=== PATIENT | male | born 1935 | race Caucasian/White ===

== ENCOUNTER → 2016-11-03 | Outpatient (CLI) | payer MEDICARE, OTHER ==
--- NOTE | 2016-11-03 11:47 | US ---
EXAM DESCRIPTION: Soft Tissue, Abdomen CLINICAL HISTORY: LEFT LOWER QUADRANT ABDOMINAL PAIN COMPARISON: None Available. TECHNIQUE: Transcutaneous scanning: Two-dimensional and Doppler modes. FINDINGS: Hypoechoic complex solid lesion with central echogenicity and no peristalsis. Ill-defined hunter, measuring 1.72 x 1.68 x 4.5 cm. Posterior attenuation. No significant vascularity on Doppler. IMPRESSION: Ill-defined solid lesion versus abnormal/normal non bowel tissue in the left lower quadrant of the abdomen in the region of pain. Nonvascular. Consider CT scan of the abdomen and pelvis with IV contrast and delayed images. CRITICAL COMMUNICATION: The critical value was discussed directly by phone with DEWEY RizoP at approximately 1140 hours, on November 03, 2016. Electronically signed by: Franko Issa MD 11/03/2016 11:45 AM CDT Workstation: [id number]
--- NOTE | 2016-11-03 14:35 | CT ---
EXAM DESCRIPTION: CT: Abdomen/Pelvis w/Contrast CLINICAL HISTORY: UNSPECIFIED ABDOMINAL PAIN COMPARISON: Left lower quadrant abdominal ultrasound today. TECHNIQUE: Spiral-axial scans at 5 mm intervals through the abdomen and pelvis after water-soluble oral contrast and nonionic IV contrast. Coronal and sagittal 2.0 mm reconstructions. 5- minute delayed axial scans, from liver through the pelvis. No adverse reactions. . Total Exam DLP: 1594.3 mGy-cm. This exam was performed according to our departmental dose-optimization program which includes automated exposure control, adjustment of the mA and/or kV according to patient size and/or use of iterative reconstruction technique; to reduce radiation dose to as low as reasonably achievable (ALARA). FINDINGS: Colon: Multiple diverticula in the descending colon and sigmoid with a few diverticula at the splenic flexure. At the junction of the descending colon and sigmoid colon, the wall is thickened and there is also thickening of the diverticula. Also noted is fascial thickening and pericolic fatty stranding. No fluid collections. No free intraperitoneal air. No obstruction of the colon. Terminal Ileum/Cecum: Contains oral contrast and normal caliber. Normal caliber of the appendix containing oral contrast. Normal density of the surrounding fat with no free fluid. Small Bowel: Contains oral contrast with minimal gas no distention or significant air-fluid levels. Lung bases and pleura: Unremarkable. Liver, Stomach, Spleen, and adrenal glands: Negative. Pancreas, Gallbladder, Ducts: Surgical clips in the gallbladder fossa but no fluid. Common bile duct is not dilated. Normal size density and enhancement of the pancreas. Kidneys and Ureters: Bilateral parapelvic cysts. No radiodense stones, hydronephrosis, hydroureter. Atherosclerotic calcification of the bilateral renal artery ostia at the aorta. Mesentery: Fatty stranding and fascial thickening around the junction of the descending colon and sigmoid colon as previously described. No free air or free fluid. No significant adenopathy. Aorta: Atherosclerotic calcification of the ostia of the celiac axis and SMA. Moderate distal atherosclerotic calcification extending into the right common iliac artery. No para-aortic mass. Spine and Bony Pelvis: Spondylosis included thoracic and upper lumbar spine. Posterior bulging discs at L4-5 and L5-S1 (grade 1 anterolisthesis) with possible herniation posterior L4-5 disc and calcification significant foraminal narrowing. Lumbar facet degeneration. Pelvic Organs: Markedly enlarged and heterogeneously enhancing prostate gland impressing on the base of the urinary bladder measuring 5.7 x 5.6 x 4.8 cm, partially calcified. Thickened hunter of the urinary bladder, minimal contrast. Abdominal Wall/Back Soft Tissues: bilateral fatty inguinal hernias larger on the right not containing bowel. IMPRESSION: 1. Diverticulitis at the junction of the descending colon and sigmoid colon with no evidence of complications including free air and free fluid. Diverticulosis. 2. Spondylosis thoracic and lumbar spine. Bulging and possibly herniated discs at L4-5 and L5-S1 with facet degeneration. 3. Markedly enlarged prostate gland impressing on the base of the urinary bladder. No free fluid. 4. Bilateral parapelvic cysts in the kidneys but no significant abnormalities. 5. Atherosclerotic calcifications of the origins of the celiac axis, SMA, and bilateral renal arteries. Correlate with clinical findings; these findings could contribute to organ ischemia in the abdomen. CRITICAL COMMUNICATION: The critical value was discussed directly by phone with MARIYA Rizo at approximately 1425 hours, on November 03, 2016. Electronically signed by: Franko Issa MD 11/03/2016 2:33 PM CDT Workstation: [id number]
== END ==
LOC: US 10:53
PROVIDERS: ATTEND Nurse Practitioner Family
DX: R22.2 Localized swelling, mass and lump, trunk (principal); R10.32 Left lower quadrant pain; K57.32 Diverticulitis of large intestine without perforation or abscess without bleeding; N40.0 Benign prostatic hyperplasia without lower urinary tract symptoms; I70.1 Atherosclerosis of renal artery; K46.9 Unspecified abdominal hernia without obstruction or gangrene

== ENCOUNTER → 2016-12-17 | Outpatient (CLI) | payer MEDICARE, OTHER ==
--- NOTE | 2016-12-17 12:33 | RAD ---
EXAM DESCRIPTION: Chest,2 Views CLINICAL HISTORY: FALL COMPARISON: None available FINDINGS: The cardiomediastinal silhouette is unremarkable. There is no pulmonary contusion or pleural fluid collection. There is a slightly displaced right seventh rib fracture. No segmental rib fracture, pneumothorax or other acute abnormality. IMPRESSION: Slightly displaced right seventh rib fracture without segmental rib fracture, pneumothorax, hemothorax or other acute intrathoracic abnormality. Electronically signed by: Josh Ochoa MD 12/17/2016 12:32 PM CDT Workstation: [id number]
--- NOTE | 2016-12-17 12:34 | RAD ---
EXAM DESCRIPTION: Scapula,Right CLINICAL HISTORY: 81 years Male, SHOULDER PAIN COMPARISON: None. FINDINGS: 2 views of the right scapula show degenerative changes in the right glenohumeral joint. No displaced scapular fracture is identified. There is a minimally displaced right seventh rib fracture. No additional rib fracture is seen. IMPRESSION: Minimally displaced right seventh rib fracture, but no additional acute pneumonia. Moderately advanced degenerative changes in the right glenohumeral joint. Electronically signed by: Josh Ochoa MD 12/17/2016 12:33 PM CDT Workstation: [id number]
== END | disposition home or self-care (01) ==
LOC: GMA 11:45
PROVIDERS: ATTEND Nurse Practitioner Family
DX: M89.8X1 Other specified disorders of bone, shoulder (principal); M19.011 Primary osteoarthritis, right shoulder; M84.48XA Pathological fracture, other site, initial encounter for fracture

== ENCOUNTER → 2017-12-20 | Outpatient (CLI) | payer OTHER ==
--- NOTE | 2017-12-20 11:05 | CT ---
EXAM DESCRIPTION: Lumbar Spine: Computed Tomography. CLINICAL HISTORY: ACUTE LOW BACK PAIN. Acute flank pain. COMPARISON: Lumbar spine MRI without contrast 04/15/2009. TECHNIQUE: Spiral, axial 2.5 x 5.0 mm scans through the lumbarspine without contrast. Coronal and sagittal 3.0 mm Reconstructions. Total Exam DLP: 1222.6 mGy-cm. This exam was performed according to our departmental dose-optimization program which includes automated exposure control, adjustment of the mA and/or kV according to patient size and/or use of iterative reconstruction technique; to reduce radiation dose to as low as reasonably achievable (ALARA). FINDINGS: L5-S1: Mild disc space loss posteriorly with bulging abutting the thecal sac. Grade 1 anterolisthesis. Near stenosis of the bilateral foramina more on the left. Moderate facet arthrosis and minimal flavum ligament hypertrophy. Spondylolysis right pars interarticularis. L4-5: Minimal degenerative signal in the disc. Posterior midline moderate disc osteophyte bulge with flavum ligament hypertrophy and facet arthrosis and mild to moderate canal stenosis. Bilateral mild foraminal stenosis. L3-4: Disc space maintained minimal anterior posterior bulging with anterior endplate spurs. Mild canal narrowing and bilateral moderate foraminal narrowing. Minimal flavum ligament hypertrophy and mild facet arthrosis. L2-3: Disc space maintained with minimal posterior bulging. Anterior marginal spurs. Mild canal narrowing. Bilateral foramina are patent. Posterior elements unremarkable. L1-2: Anterior disc bulging and endplate ridging. Minimal posterior bulge with calcification in the posterior disc. Minimal flavum ligament hypertrophy and mild facet arthrosis with mild canal narrowing. Bilateral foramina are patent. No scoliosis. No compression type vertebral body fractures. IMPRESSION: 1. Posterior midline L4-5 disc osteophyte bulge impressing on the thecal sac with mild to moderate canal stenosis. Bilateral bony and disc encroaching on the foramen with mild stenosis. 2. 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 Moderate facet arthrosis. Borderline stenosis of the bilateral foramina more on the left. Mild to moderate canal narrowing. 3. Anterior and posterior disc bulge L3-4 bilateral moderate foraminal narrowing with facet arthrosis and flavum ligament hypertrophy. Electronically signed by: Franko Issa MD 12/20/2017 11:03 AM CDT
--- NOTE | 2017-12-20 11:37 | CT ---
EXAM DESCRIPTION: Abdomen/Pelvis w/o Contrast: Computed Tomography. CLINICAL HISTORY: ACUTE FLANK PN COMPARISON: CT scan lumbar spine without contrast on the same visit. TECHNIQUE: Spiral-axial scans at 5.0 x 5.0 mm intervals through the abdomen and pelvis. Coronal and sagittal 2.0mm reconstructions. No IV or oral contrast. Total Exam DLP: 1222.26 mGy-cm. This exam was performed according to our departmental CT dose-optimization program which includes automated exposure control, adjustment of the mA and/or kV according to patient size and/or use of iterative reconstruction technique; to reduce radiation dose to as low as reasonably achievable (ALARA). FINDINGS: Kidneys and Ureters: Trace hydronephrosis bilaterally. Bilateral parapelvic cysts and bilateral prominent renal pelves. No radiodense stones. Pararenal fatty stranding bilaterally is symmetric and more likely to represent aging than renal obstruction. Symmetric renal size bilaterally. Bilateral ureters are not dilated with no periureteral edema. However mass effect on the base of the urinary bladder and ureterovesical junctions from the enlarged prostate gland. Pelvic Organs: Prostate is heterogeneous in density with central anterior superior low-density. Central inferior calcification. Largest transverse dimension is 5.7 x 4.7 cm in craniocaudal dimension approximately 6 cm. Lobulated anterior superior surface of the prostate gland, also somewhat irregular surface, impressing on the base of the bladder. Minimal distention of the bladder with wall thickening and no radiodense stones. Mass effect also on the seminal vesicles. No focal masses in the pelvic cavity and no fluid in the anterior peritoneal reflection. Lung and pleura bases: Negative. Liver, spleen, stomach, and adrenal glands: Stomach is unremarkable. Long axis of the right lobe of the liver is 16.7 cm. No focal lesions. Normal density. Other solid organs are negative. Pancreas, Gallbladder, Ducts: Gallbladder has been surgically removed with no fluid in the gallbladder fossa. No dilation of the common bile duct. Minimal fatty infiltration of the pancreas. Aorta: Moderate atherosclerotic calcification involving the ostia of the major branch vessels from the aorta and extending into the bilateral common iliac arteries. Outer aortic caliber is normal. Small Bowel: Negative. Terminal Ileum/Cecum: Unremarkable. Gas in the appendix which is normal caliber. Normal density of surrounding fat. Colon: Scattered diverticula in the mid and distal colon more numerous distally. No complications. Descending colon and sigmoid and rectum minimally distended by gas. Mesentery: No abnormal fatty stranding or fascial thickening. No free air or ascites. Spine and Bony Pelvis: Minimal hypertrophy abutting the SI joints. Hypertrophic changes in the superior lateral acetabula facets with opposing subchondral changes in the lateral femoral heads. Bilateral lateral cortical bumps on the femoral heads and inferior marginal spurs. Bilateral hypertrophic changes in the greater trochanters and calcification of the gluteal tendons inserting on the trochanters. Abdominal Wall/Back Soft Tissues: Bilateral fatty inguinal hernias larger on the right containing fat and vessels only, no bowel. Minimal density and air in the upper outer quadrant of the left buttock subcutaneous tissues may be related to injection. IMPRESSION: 1. Enlarged prostate gland impressing on the base of the urinary bladder and minimal mass effect on the bilateral ureterovesical junctions of the distal ureters. No fluid in the pelvis. Thickening of the hunter of the urinary bladder with No radiodense stones. No hydroureter or periureteral edema. Trace hydronephrosis bilateral kidneys. Bilateral parapelvic cysts and extrarenal pelves. This can be confirmed with IV contrast study if indicated. Patient is under the care of urologist at this time. 2. Bilateral arthrosis in the hip joints with prominent subcapital bilateral cortical bumps, and prominent superior lateral acetabular facet spurs which can contribute to femoral acetabular impingement. 3. Liver is borderline enlarged but normal density and no ascites. 4. Distal colonic diverticulosis with no complications. 5. Moderate atherosclerotic changes in the abdominal aorta and the major branch vessels. CRITICAL COMMUNICATION: The critical value was discussed directly by phone with ROBBI Landa at approximately 1125 hours, on December 20, 2017. Electronically signed by: Franko Issa MD 12/20/2017 11:35 AM CDT
== END ==
LOC: CT 09:34
PROVIDERS: ATTEND Nurse Practitioner Family
DX: K57.30 Diverticulosis of large intestine without perforation or abscess without bleeding (principal); M16.0 Bilateral primary osteoarthritis of hip; N40.0 Benign prostatic hyperplasia without lower urinary tract symptoms; I70.0 Atherosclerosis of aorta; R10.9 Unspecified abdominal pain; M51.26 Other intervertebral disc displacement, lumbar region; M43.07 Spondylolysis, lumbosacral region

== ENCOUNTER → 2019-04-17 | Outpatient (CLI) | payer OTHER ==
--- NOTE | 2019-04-17 14:32 | CT ---
EXAM DESCRIPTION: Abdomen/Pelvis w/wo Contrast CLINICAL HISTORY: 83 years Male, LEFT LOWER QUADRANT PAIN COMPARISON: 20 December 2017 TECHNIQUE: Transaxial images were obtained without and with intravenous contrast medium without oral contrast media. Sagittal and coronal reconstruction was performed.This exam was performed according to our departmental dose-optimization program, which includes automated exposure control, adjustment of the mA and/or kV according to patient size and/or use of iterative reconstruction technique. FINDINGS: The lung bases are clear. The liver and spleen are normal. No biliary ductal dilatation is observed. The gallbladder is been previously removed. Surgical clips are seen in the region of the gallbladder fossa. No adrenal masses are detected. The pancreas is normal in appearance. Imaging of the kidneys reveals no evidence of hydronephrosis mass or calcification. Prominent peripelvic cysts are observed bilaterally. Calcific atherosclerotic changes observed in the abdominal aorta without evidence of aneurysmal dilatation. The appendix is identified and is normal in appearance. Diverticulosis of the colon is observed without evidence of diverticulitis. Prostatic enlargement is observed. Fat is observed in the inguinal canals. No free pelvic fluid is observed. Degenerative changes are observed in the lower lumbar spine. IMPRESSION: 1. Cholecystectomy. 2. Prominent bilateral peripelvic cysts are observed. 3. Extensive diverticulosis of the sigmoid colon is observed without evidence of diverticulitis. Electronically signed by: Hans Sawyer MD 04/17/2019 2:30 PM TELECASTING ENGINEER
== END ==
LOC: LAB.O 12:27
PROVIDERS: ATTEND General Practice
DX: K57.30 Diverticulosis of large intestine without perforation or abscess without bleeding (principal); N28.1 Cyst of kidney, acquired; Z90.49 Acquired absence of other specified parts of digestive tract

== ENCOUNTER → 2019-05-17 | Outpatient (CLI) | payer OTHER ==
--- NOTE | 2019-05-18 11:28 | MRI ---
Study: MRI of the Left Hip. Indication: HIP PAIN Technique: Multiplanar, multi sequence MRI of the left hip was obtained without intravenous contrast. Comparison: None Findings: Grade 4 chondral loss of the posterior aspects of the left hip joint as well as anterosuperiorly. Additional grade 3 chondral thinning throughout the remainder of the joint. Tiny joint line osteophytes. High-grade tear of the base of the anterior superior left hip labrum. Tiny joint effusion. No acute fracture or osteonecrosis. Tendinosis and attenuation bilateral gluteus minimus/medius tendon insertions with mild bilateral greater trochanteric bursal edema. Severe pubic symphysis osteoarthritis with a tiny joint effusion. Mild reactive edema within the adjacent adductor musculature. Lower lumbar disc disease. Pronounced prostatomegaly with heterogeneity and mass effect on the bladder. Postsurgical changes of a prior TURP procedure suspected. 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 No acute fracture or osteonecrosis. Prostatomegaly and heterogeneity with suspected postsurgical changes of a prior TURP procedure as well as mass effect on the bladder. Correlation with PSA and physical examination recommended. Additional findings as above. Electronically signed by: Mejia Brumfield MD 05/18/2019 11:27 AM POULTRY SCIENTIST
== END ==
LOC: MRI 09:01
PROVIDERS: ATTEND Nurse Practitioner Family
DX: M16.12 Unilateral primary osteoarthritis, left hip (principal); M25.452 Effusion, left hip; N40.0 Benign prostatic hyperplasia without lower urinary tract symptoms

== ENCOUNTER → 2019-05-24 | Outpatient (CLI) | payer OTHER | LOC: LAB.O 14:26 | PROVIDERS: ATTEND Nurse Practitioner Family | DX: R31.9 Hematuria, unspecified (principal) ==

== ENCOUNTER 2019-07-02 20:02 | Emergency (ER) | payer OTHER ==
[2019-07-02] MEDS ORDERED: CHLORHEXIDINE GLUCONATE 4 % 15 ML UD TOP ONE (20:21)
[2019-07-02] MEDS ORDERED: TETANUS,DIPHTHERIA,PERTUSSIS 1 EA SYG IM ONE (20:31)
[2019-07-02] MEDS ORDERED: SODIUM CHLORIDE 0.9% (FLUSH) 10 ML SYG IV PRN (20:38)
[2019-07-02 21:27] VITALS: TEMP 97.8
--- NOTE | 2019-07-02 21:53 | CT ---
EXAM: CT Head and Cervical Spine Without Intravenous Contrast CLINICAL HISTORY: The patient is 83 years old and is Male; syncope TECHNIQUE: Axial computed tomography images of the head/brain and cervical spine without intravenous contrast. Sagittal and coronal reformatted images were created and reviewed. This CT exam was performed using one or more of the following dose reduction techniques: automated exposure control, adjustment of the mA and/or kV according to patient size, and/or use of iterative reconstruction technique. COMPARISON: No relevant prior studies available. FINDINGS: Brain: Periventricular and deep white matter hypodensities, most commonly due to nonspecific white matter chronic microvascular ischemia. Mild cerebral atrophy. No hemorrhage. Ventricles: Unremarkable. No ventriculomegaly. Skull: No acute fracture. Sinuses: Unremarkable as visualized. No acute sinusitis. Mastoid air cells: Unremarkable as visualized. No mastoid effusion. Cervical spine: No acute fracture. Normal alignment. Multilevel spine degenerative changes with disc height loss and osteophyte formation and facet arthrosis, most pronounced at C2-C7. Posterior disc osteophyte complexes seen at C2-C7 resulting in varying degrees of Central Canal and foraminal stenosis. Soft tissues: Unremarkable. Vasculature: Vascular calcifications. IMPRESSION: 1. No acute intracranial findings. Mild cerebral atrophy and nonspecific chronic microvascular ischemic changes. 2. No acute spine abnormality. No fracture or subluxation. Spine degenerative changes. Electronically signed by: Saad Ramirez MD 07/02/2019 9:50 PM CDT
--- NOTE | 2019-07-02 21:53 | RAD ---
EXAM DESCRIPTION: Chest,1 View CLINICAL HISTORY: 83 years Male syncope COMPARISON: 12/17/2016 FINDINGS: The cardiomediastinal silhouette appears unremarkable. No consolidating infiltrates or pleural effusions. No pneumothorax. Old healed rib fractures in posterior right sixth and seventh ribs. IMPRESSION: No acute abnormality is identified. Electronically signed by: Monica Vasques MD 07/02/2019 9:49 PM CDT
--- NOTE | 2019-07-02 22:39 | ED.PDOC ---
History of Present Illness - General Chief Complaint: Trauma Stated Complaint: fall and disorientated Time Seen by Provider: 07/02/19 20:38 Source: patient, RN notes reviewed, Vital Signs reviewed, family - Exam Limitations: no limitations - History of Present Illness Initial Comments: Patient is an 83-year-old white male who presents with possible syncope and amnesia to a fall. Patient was outside painting in the next thing he knew his [id number] was standing over him. Patient has no memory of the incident. He cannot remember if he tripped and fell and hit his head or if he passed out. Patient denies any symptoms at this time. Patient denies any chest pain, shortness of breath, nausea, vomiting, diarrhea. Patient denies any dizziness or blurry vision. Timing/Duration: 1-3 hours Severity: moderate Improving Factors: nothing Worsening Factors: nothing Associated Symptoms: denies symptoms Allergies/Adverse Reactions: Allergies NO KNOWN ALLERGY Allergy (Verified 03/24/15 11:20) Home Medications: Ambulatory Orders Dapagliflozin Propanediol [Farxiga] 10 mg PO DAILY 11/26/14 Liraglutide [Victoza] 0.6 mg SC DAILY 11/26/14 Meloxicam 15 mg PO DAILY 11/26/14 Pravastatin Sodium 40 mg PO DAILY 11/26/14 Review of Systems - Review of Systems Constitutional: States: no symptoms reported. Denies: chills, fever, weakness EENTM: States: no symptoms reported. Denies: eye pain, blurred vision, double vision Respiratory: States: no symptoms reported. Denies: cough, short of breath, stridor, wheezing Cardiology: States: see HPI, syncope - Patient is unsure if he actually passed out or if he tripped and fell and hit his head.. Denies: chest pain, palpitations Gastrointestinal/Abdominal: States: no symptoms reported. Denies: abdominal pain, nausea, vomiting Genitourinary: States: no symptoms reported Musculoskeletal: States: no symptoms reported. Denies: back pain, neck pain Skin: States: see HPI, other - Patient with abrasions to his face. Neurological: States: see HPI, other - Patient with confusion immediately post event. He returned to baseline within a few minutes.. Denies: headache, numbness, paresthesia, tingling, tremors, weakness Endocrine: States: no symptoms reported. Denies: excessive sweating, intolerance to cold, intolerance to heat Hematologic/Lymphatic: States: no symptoms reported. Denies: anemia, easy bleeding All other Systems: No Change from Baseline Past Medical History (General) - Patient Medical History Hx Seizures: No Hx Stroke: No Hx Dementia: No Hx Asthma: No Hx of COPD: No Hx Cardiac Disorders: No Hx Congestive Heart Failure: No Hx Pacemaker: No Hx Hypertension: Yes Hx Thyroid Disease: No Hx Diabetes: Yes - type2 Hx Gastroesophageal Reflux: Yes - diverticulosis Hx Renal Disease: No Hx Cancer: No Hx of HIV: No Hx Hepatitis C: No Hx MRSA: No Surgical History: cholecystectomy - Vaccination History Hx Tetanus, Diphtheria Vaccination: Yes Hx Influenza Vaccination: Yes Hx Pneumococcal Vaccination: Yes Immunizations Up to Date: Yes - Social History Hx Tobacco Use: No Hx Chewing Tobacco Use: No Hx Alcohol Use: No Hx Substance Use: No Hx Substance Use Treatment: No Hx Depression: No Feels Threatened In Home Enviroment: No Feels Threatened In a Relationship: No Hx Physical Abuse: No Hx Emotional Abuse: No Hx Suspected Abuse: No - Activities of Daily Living Hospice Agency (if applicable):: None - Female History Patient is a Female of Child Bearing Age (10 -59 yrs old): No Family Medical History - Family History Mother Living Status: Hx Family Cancer: Yes - colon Physical Exam - Physical Exam General Appearance: Alert, Comfortable, Playful, Well Developed, Well Groomed, Well Hydrated, Well Nourished Eye Exam: bilateral normal Ears, Nose, Throat: hearing grossly normal, normal pharynx Neck: non-tender, full range of motion, supple, normal inspection Respiratory: chest non-tender, lungs clear, normal breath sounds, no respiratory distress, no accessory muscle use Cardiovascular/Chest: normal peripheral pulses, regular rate, rhythm, no edema, no gallop, no JVD, no murmur Peripheral Pulses: radial,right: 2+, radial,left: 2+ Gastrointestinal/Abdominal: normal bowel sounds, soft, no organomegaly, no pulsatile mass Back Exam: normal inspection, no CVA tenderness, no vertebral tenderness Extremity: normal range of motion, non-tender, normal inspection, no pedal edema Neurologic: car wiper II-XII nml as tested, no motor/sensory deficits, alert, normal mood/affect, oriented x 3 Skin Exam: other - Abrasions to his right face. Lymphatic: no adenopathy Progress - Progress Progress: Differential diagnosis: Trip and fall, syncope, acute coronary syndrome, PE among others. 07/02/19 22:49 Patient's EKG is relatively unremarkable. Cardiac enzymes are negative. I did offer a second set of cardiac enzymes within 2 hours and patient and defer as they do not want a stay. Patient was not tachycardic here but he does have a slightly elevated d-dimer. Patient's kidneys will not tolerate IV contrast dye from a CTA of the chest. I do not have access to a VQ scan at night. I offered to admit patient for further evaluation and VQ scan in the morning and he refuses. Patient states he will follow-up with his PCP for further evaluation. I gave the patient and his the risks and benefits of this course of action including but not limited to worsening of his symptoms, cardiac arrest, and they voiced understanding but states they will follow-up with the doctor in the morning. Gustabo Foster M.D. #[id number] - Results/Orders Results/Orders: 07/02/19 20:38 IV Care:Saline Lock per Protoc QSHIFT Telemetry .ONCE Sodium Chloride 0.9% (Flush) [Saline Flush Syringe] 10 ml IV PRN PRN EKG Stat Pulse Ox Stat 07/02/19 20:39 Pulse Oximetry Assessment DAILY Laboratory Results - last 24 hr 07/02/19 07/02/19 07/02/19 20:15 21:10 21:10 WBC 5.9 RBC 5.03 Hgb 14.4 Hct 43.1 MCV 85.7 MCH 28.7 MCHC 33.5 RDW 14.6 H Plt Count 205 MPV 8.1 Absolute Neuts (auto) 3.90 Absolute Lymphs (auto) 1.40 Absolute Monos (auto) 0.50 Absolute Eos (auto) 0.10 Absolute Basos (auto) 0.00 Neutrophils % 66.8 Lymphocytes % 23.1 Monocytes % 8.0 Eosinophils % 1.5 Basophils % 0.6 PT 9.9 INR 1.00 PTT (SP) 21.4 L D-Dimer, Quantitative 181 Sodium 142 Potassium 4.1 Chloride 110 Carbon Dioxide 24 Anion Gap 12.1 BUN 28 H Creatinine 1.65 H BUN/Creatinine Ratio 17.0 POC Glucose 222 H Random Glucose 210 H Serum Osmolality 294.8 Calcium 9.4 Magnesium 2.1 Total Bilirubin 0.7 Direct Bilirubin 0.1 Indirect Bilirubin 0.6 AST 17 ALT 18 Alkaline Phosphatase 51 Creatine Kinase 81 CK-MB (CK-2) 2.8 CK-MB (CK-2) % Not Reportable Troponin I < 0.02 B-Natriuretic Peptide 134.0 H Serum Total Protein 7.0 Albumin 4.3 EKG performed 02 July 2019 at 2051 hrs: Sinus rhythm with first-degree AV block with frequent PVCs at 97 bpm, normal axis deviation, no ST or T wave changes, otherwise normal EKG. No comparison EKG available. EXAM: CT Head and Cervical Spine Without Intravenous Contrast CLINICAL HISTORY: The patient is 83 years old and is Male; syncope TECHNIQUE: Axial computed tomography images of the head/brain and cervical spine without intravenous contrast. Sagittal and coronal reformatted images were created and reviewed. This CT exam was performed using one or more of the following dose reduction techniques: automated exposure control, adjustment of the mA and/or kV according to patient size, and/or use of iterative reconstruction technique. COMPARISON: No relevant prior studies available. FINDINGS: Brain: Periventricular and deep white matter hypodensities, most commonly due to nonspecific white matter chronic microvascular ischemia. Mild cerebral atrophy. No hemorrhage. Ventricles: Unremarkable. No ventriculomegaly. Skull: No acute fracture. Sinuses: Unremarkable as visualized. No acute sinusitis. Mastoid air cells: Unremarkable as visualized. No mastoid effusion. Cervical spine: No acute fracture. Normal alignment. Multilevel spine degenerative changes with disc height loss and osteophyte formation and facet arthrosis, most pronounced at C2-C7. Posterior disc osteophyte complexes seen at C2-C7 resulting in varying degrees of Central Canal and foraminal stenosis. Soft tissues: Unremarkable. Vasculature: Vascular calcifications. IMPRESSION: 1. No acute intracranial findings. Mild cerebral atrophy and nonspecific chronic microvascular ischemic changes. 2. No acute spine abnormality. No fracture or subluxation. Spine degenerative changes. Electronically signed by: Saad Ramirez MD 07/02/2019 9:50 PM EXAM DESCRIPTION: Chest,1 View CLINICAL HISTORY: 83 years Male syncope COMPARISON: 12/17/2016 FINDINGS: The cardiomediastinal silhouette appears unremarkable. No consolidating infiltrates or pleural effusions. No pneumothorax. Old healed rib fractures in posterior right sixth and seventh ribs. IMPRESSION: No acute abnormality is identified. Electronically signed by: Monica Vasques MD 07/02/2019 9:49 PM EXAM: CT Head and Cervical Spine Without Intravenous Contrast CLINICAL HISTORY: The patient is 83 years old and is Male; syncope TECHNIQUE: Axial computed tomography images of the head/brain and cervical spine without intravenous contrast. Sagittal and coronal reformatted images were created and reviewed. This CT exam was performed using one or more of the following dose reduction techniques: automated exposure control, adjustment of the mA and/or kV according to patient size, and/or use of iterative reconstruction technique. COMPARISON: No relevant prior studies available. FINDINGS: Brain: Periventricular and deep white matter hypodensities, most commonly due to nonspecific white matter chronic microvascular ischemia. Mild cerebral atrophy. No hemorrhage. Ventricles: Unremarkable. No ventriculomegaly. Skull: No acute fracture. Sinuses: Unremarkable as visualized. No acute sinusitis. Mastoid air cells: Unremarkable as visualized. No mastoid effusion. Cervical spine: No acute fracture. Normal alignment. Multilevel spine degenerative changes with disc height loss and osteophyte formation and facet arthrosis, most pronounced at C2-C7. Posterior disc osteophyte complexes seen at C2-C7 resulting in varying degrees of Central Canal and foraminal stenosis. Soft tissues: Unremarkable. Vasculature: Vascular calcifications. IMPRESSION: 1. No acute intracranial findings. Mild cerebral atrophy and nonspecific chronic microvascular ischemic changes. 2. No acute spine abnormality. No fracture or subluxation. Spine degenerative changes. Electronically signed by: Saad Ramirez MD 07/02/2019 9:50 PM - EKG/XRAY/CT CT Ordered: Yes Departure - Departure Clinical Impression: Near syncope, Amnesia, global, transient, Need for prophylactic vaccination against diphtheria, tetanus, acellular pertussis, poliovirus, and hepatitis B virus Fall Qualifiers: Encounter type: initial encounter Qualified Code(s): W19.XXXA - Unspecified fall, initial encounter Facial abrasion Qualifiers: Encounter type: initial encounter Qualified Code(s): S00.81XA - Abrasion of other part of head, initial encounter Time of Disposition: 22:53 Disposition: Discharge to Home or Self Care Condition: Good Departure Forms: ED Discharge - Pt. Copy, Patient Portal Self Enrollment Instructions: DI for Trauma, Syncope (Fainting) (DC), Skin Abrasions (DC) Diet: resume usual diet Activity: increase activity as tolerated Referrals: Jordan Martinez MD [Primary Care Provider] - 1-2 Days Home Medications: Ambulatory Orders Dapagliflozin Propanediol [Farxiga] 10 mg PO DAILY 11/26/14 Liraglutide [Victoza] 0.6 mg SC DAILY 11/26/14 Meloxicam 15 mg PO DAILY 11/26/14 Pravastatin Sodium 40 mg PO DAILY 11/26/14
[2019-07-02 23:36] VITALS: BP 172/97; O2SAT 97
== END 2019-07-02 23:15 | disposition home or self-care (01) ==
LOC: ER 20:02
DX: R55 Syncope and collapse (principal); S00.81XA Abrasion of other part of head, initial encounter; G45.4 Transient global amnesia; M47.812 Spondylosis without myelopathy or radiculopathy, cervical region; G31.9 Degenerative disease of nervous system, unspecified; E11.9 Type 2 diabetes mellitus without complications; K21.9 Gastro-esophageal reflux disease without esophagitis; I10 Essential (primary) hypertension; W19.XXXA Unspecified fall, initial encounter; Y92.89 Other specified places as the place of occurrence of the external cause; Z79.899 Other long term (current) drug therapy

== ENCOUNTER → 2019-07-05 | Outpatient (CLI) | payer OTHER ==
--- NOTE | 2019-07-05 12:49 | US ---
EXAM DESCRIPTION: Carotid Duplex: ULTRASOUND. CLINICAL HISTORY: 83 years Male SYNCOPE COMPARISON: CT scan of the head July 01. TECHNIQUE: Transcutaneous scanning utilizing walton-scale and Doppler modes to evaluate the bilateral carotid systems and vertebral arteries. Percentage of diameter of stenosis or no stenosis recorded will be based upon NASCET criteria. FINDINGS: Peak systolic/end diastolic (CM-Sec) CCA Right 89/9 Left 87/16. ICA Right proximal 78/9, distal 70/14. Left proximal 85/13, Distal 69/15. Vertebral Right 34/8 Left 34/6. ECA (PS Only) Right 88 left 118. ICA/CCA peak systolic ratio: Right 0.9 Left 1.0 ICA/CCA end diastolic ratio: Right 0.9 Left 0.8 Vertebral arteries: antegrade flow. Comments: Atherosclerotic calcification in the bilateral common carotid bulbs and proximal bilateral ICAs. Left mid CCA bulb: Area stenosis 40% and diameter stenosis 50%. Distal left CCA area stenosis 34% and diameter stenosis 40%. Distal right CCA: Area stenosis 55% and diameter stenosis 36%. Right mid bulb: Area stenosis 24% and diameter stenosis 27%. Color turbulent flow in the proximal ICA along with spectral broadening. IMPRESSION: 1. Doppler evaluation of the bilateral carotid systems and vertebral arteries shows no hemodynamically significant stenoses. 2. No significant amount of plaque in the carotid arteries bilaterally. Bilateral vertebral arteries showed antegrade-cephalad flow. Electronically signed by: Franko Issa MD 07/05/2019 12:48 PM CDT
== END ==
LOC: US 10:34
PROVIDERS: ATTEND Nurse Practitioner Family
DX: R55 Syncope and collapse (principal)